=== PATIENT | male | born 1960 | race American Indian/Alaskan Native ===

== ENCOUNTER 2018-01-01 11:06 | Outpatient (CLI) | payer BC ==
[2018-01-01 11:56] LABS: Blood Urea Nitrogen 13 mg/dL (9-20)
--- NOTE | 2018-01-01 17:13 | Cat Scan Report ---
FINAL REPORT EXAM: CT ABDOMEN PELVIS W CON HISTORY: ABDOMINAL PAIN COMPARISON: None. TECHNIQUE: Multiple contiguous axial images were obtained from the lung bases to the pubic symphysis after administration of IV contrast. Reformatted sagittal and coronal images were available for review. FINDINGS: Lung bases: Normal. Visualized heart and mediastinum: Normal. Liver: Normal. Spleen: Normal. Pancreas: Normal. Gallbladder and Biliary Tree: No calcified gallstones. No biliary ductal dilatation. Adrenal glands: Normal. Kidneys: Symmetric enhancement to both kidneys. No hydronephrosis. Bladder: Normal. Pelvic organs: Normal prostate gland and seminal vesicles. Bowel: No evidence of obstruction. Oral contrast advances to the transverse colon. Large amount of stool within the colon. The appendix is mildly dilated, measuring up to 9 millimeters in diameter. There is a small appendicoliths within the tip of the appendix. There is minimal stranding around the tip of the appendix. Peritoneum: No significant mesenteric adenopathy. No free air or free fluid. Vasculature: Abdominal aorta is normal in caliber without evidence of aneurysm. Normal appearance of the portal venous system and the inferior vena cava. Bones and soft tissues: No suspicious osseous lesions. No acute fracture or dislocation. Degenerative changes of the spine.Soft tissues are normal. IMPRESSION: Findings are concerning for early appendicitis. The appendix measures up to 9 millimeters and demonstrates an appendicolith. There is a minimal amount of stranding around the tip of the appendix. No evidence of perforation or abscess formation.
== END 2018-01-01 11:07 | disposition home or self-care (01) ==
LOC: CT 11:06
PROVIDERS: ATTEND Internal Medicine Gastroenterology
DX: K38.1 Appendicular concretions (principal); R19.4 Change in bowel habit; M47.899 Other spondylosis, site unspecified; E11.9 Type 2 diabetes mellitus without complications; I10 Essential (primary) hypertension
CPT/HCPCS: 36415; 74177; 82565; 84520; Q9967

== ENCOUNTER 2021-06-19 07:36 | Emergency (ER) | payer BC ==
[2021-06-19 07:51] VITALS: BP 143/72
--- NOTE | 2021-06-19 07:54 | Emergency Department Report ---
ED Abdominal Pain HPI - General Chief Complaint: Abdominal Pain Stated Complaint: WANTS APPENDIX CHECKED Time Seen by Provider: 06/19/21 07:49 Source: patient Mode of arrival: Ambulatory Limitations: No Limitations - History of Present Illness Initial Comments: The patient was evaluated in the emergency department for symptoms described in the history of present illness. He/she was evaluated in the context of the global COVID-19 pandemic, which necessitated consideration that the patient might be at risk for infection with the virus that causes COVID-19. Institutional protocols and algorithms that pertain to the evaluation of patients at risk for COVID-19 are in a state of rapid change based on information released by regulatory bodies including the CDC and federal and state organizations. These policies and algorithms were followed during the patient's care in the emergency department. Please note that these policies, procedures and recommendations changed on a rapid basis. 60-year-old -[place] male presents to the emergency room complaining of right lower quadrant pain since . Patient states that it improved and came back worse. He denies any nausea vomiting no fever no chills no diarrhea. Patient denies any dysuria no penile discharge no testicular pain or testicular swelling. Patient states the pain is a 4 out of 10 worse with walking and standing better when he sitting. He denies any history of pain from that side before. He has had no surgeries. Has a history of diabetes hypercholesterolemia and hypertension. Patient reports he is currently on verapamil pravastatin losartan and Metformin. Patient denies any alcohol use no illicit drug use. He is currently vaccinated for Covid denies any suicidal ideation or homicidal ideation. MD Complaint: abdominal pain Onset/Timin -: week(s) Location: [facility] Radiation: none Migration to: no migration Severity scale (0 -10): 4 Quality: aching Consistency: intermittent Improves With: rest (Sitting) Worsens With: movement Associated Symptoms: denies other symptoms - Related Data Home Medications Medication Instructions Recorded Confirmed Last Taken Losartan [Cozaar] 100 mg PO QDAY 01/02/18 01/02/18 1 Day Ago ~06/18/21 Pravastatin Sodium [Pravachol] 40 mg PO 01/02/18 1 Day Ago ~06/18/21 Verapamil ER [Calan SR] 180 mg PO 01/02/18 1 Day Ago ~06/18/21 metFORMIN [Glucophage] 500 mg PO BID 06/19/21 06/19/21 Unknown Previous Rx's Medication Instructions Recorded Last Taken Type Pantoprazole [Protonix] 40 mg PO QDAY #14 tablet 01/03/18 1 Day Ago Rx ~06/18/21 levoFLOXacin [Levaquin] 750 mg PO QDAY #5 tablet 01/03/18 1 Day Ago Rx ~06/18/21 Allergies Allergy/AdvReac Type Severity Reaction Status Date / Time No Known Allergies Allergy Unverified 01/01/18 11:06 ED Review of Systems ROS: Stated complaint: WANTS APPENDIX CHECKED Other details as noted in HPI Comment: All other systems reviewed and negative ED Past Medical Hx - Past Medical History Hx Hypertension: Yes Hx Heart Attack/AMI: No Hx Congestive Heart Failure: No Hx Diabetes: Yes Hx Deep Vein Thrombosis: No Hx Pulmonary Embolism: No Hx Liver Disease: No Hx Renal Disease: No Hx Sickle Cell Disease: No Hx Arthritis: No Hx Kidney Stones: No Hx Asthma: No Hx COPD: No Hx Tuberculosis: No Hx Dementia: No Hx HIV: No - Surgical History Hx Coronary Stent: No Hx Internal Defibrillator: No - Social History Smoking Status: Never Smoker - Medications Home Medications: Home Medications Medication Instructions Recorded Confirmed Last Taken Type Losartan [Cozaar] 100 mg PO QDAY 01/02/18 01/02/18 1 Day Ago History ~06/18/21 Pravastatin Sodium [Pravachol] 40 mg PO 01/02/18 1 Day Ago History ~06/18/21 Verapamil ER [Calan SR] 180 mg PO 01/02/18 1 Day Ago History ~06/18/21 Pantoprazole [Protonix] 40 mg PO QDAY #14 tablet 01/03/18 1 Day Ago Rx ~06/18/21 levoFLOXacin [Levaquin] 750 mg PO QDAY #5 tablet 01/03/18 1 Day Ago Rx ~06/18/21 metFORMIN [Glucophage] 500 mg PO BID 06/19/21 06/19/21 Unknown History ED Physical Exam - General Limitations: No Limitations General appearance: alert, in no apparent distress - Head Head exam: Present: atraumatic, normocephalic - Eye Eye exam: Present: normal appearance - ENT ENT exam: Present: mucous membranes moist - Neck Neck exam: Present: normal inspection - Respiratory Respiratory exam: Present: normal lung sounds bilaterally. Absent: respiratory distress - Cardiovascular Cardiovascular Exam: Present: regular rate, normal rhythm. Absent: systolic murmur, diastolic murmur, rubs, gallop - GI/Abdominal GI/Abdominal exam: Present: soft, tenderness (Right lower quadrant), normal bowel sounds. Absent: guarding - Expanded GI/Abdominal Exam Expanded GI/Abdominal exam: Present: psoas sign - Rectal Rectal exam: Present: deferred - Extremities Exam Extremities exam: Present: normal inspection - Back Exam Back exam: Present: normal inspection - Neurological Exam Neurological exam: Present: alert, oriented X3, normal gait - Psychiatric Psychiatric exam: Present: normal affect, normal mood - Skin Skin exam: Present: warm, dry, intact, normal color. Absent: rash ED Course Vital Signs 06/19/21 07:49 Temperature 97.7 F Pulse Rate 68 Respiratory 18 Rate Blood Pressure 143/72 O2 Sat by Pulse 99 Oximetry - Consultations Consultation #1: 06/19/21 10:25 Consulted , General surgeon she was able to review over patient CT scans and labs and feels that this is not an acute appendicitis. ED Medical Decision Making - Lab Data Result diagrams: 06/19/21 08:26 06/19/21 08:26 - Radiology Data Radiology results: report reviewed My Comment(s) Study Comments [facility] [address] [place] [address] Cat Scan Report Signed Patient: HUBER LOPEZ MR#: [id number] : 1960 Acct:[id number] Age/Sex: 60 / M ADM Date: 06/19/21 Loc: ED Attending Dr: Ordering Physician: NETO GRIFFITHS Date of Service: 06/19/21 Procedure(s): CT abdomen pelvis w con Accession Number(s): [id number] cc: NETO GRIFFITHS CT abdomen pelvis w con INDICATION / CLINICAL INFORMATION: rlq 100 ML OMNI 300 . TECHNIQUE: Axial CT imaging of abdomen and pelvis was obtained with IV contrast. Coronal and sagittal reformatted imaging obtained and reviewed. All CT scans at this location are performed using CT dose reduction for ALARA by means of automated exposure control. COMPARISON: Prior CT abdomen/pelvis 01/01/2018 FINDINGS: CT abdomen with contrast demonstrates normal appearance of the liver, spleen, pancreas, kidneys, and adrenal glands. Gallbladder is present without obvious abnormality. No biliary dilatation noted. CT pelvis with contrast does not demonstrate mass, free fluid, or focal inflammatory change. Prostate gland is mildly enlarged. The appendix is visualized and is slightly enlarged measuring 9 mm in diameter but otherwise unremarkable. There is no periappendiceal inflammatory change. The appendix is unchanged in size and appearance compared with the prior CT of 2018. Therefore I do not see signs to suggest the presence of acute appendicitis. Moderate amount retained stool is noted throughout the colon. The remainder of the GI tract is unremarkable. Visualized lung bases are clear. No acute significant osseous abnormality is present. IMPRESSION: 1. No definite acute finding within the abdomen or pelvis. 2. Please note the appendix is mildly prominent for size with diameter of 9 mm, but there is no periappendiceal inflammatory change, and the size/appearance is unchanged compared with prior CT of 01/01/2018. 3. Mild enlargement of the prostate gland. Signer Name: Laura Zavala MD Signed: 06/19/2021 9:59 AM Workstation Name: [id number] Transcribed By: Dictated By: Laura Zavala MD Electronically Authenticated By: Laura Zavala MD Signed Date/Time: 06/19/21958 DD/ 2 TD/TT: - Medical Decision Making 60-year-old -[place] male presents to the emergency room complaining of right lower quadrant pain since . Patient states that it improved and came back worse. He denies any nausea vomiting no fever no chills no diarrhea. Patient denies any dysuria no penile discharge no testicular pain or testicular swelling. Patient states the pain is a 4 out of 10 worse with walking and standing better when he sitting. He denies any history of pain from that side before. He has had no surgeries. Has a history of diabetes hypercholestero lemia and hypertension. Patient reports he is currently on verapamil pravastatin losartan and Metformin. Patient denies any alcohol use no illicit drug use. He is currently vaccinated for Covid denies any suicidal ideation or homicidal ideation. CBC CMP lipase urinalysis, CT abdomen pelvis with contrast. INT ordered CT scan came back with no acute changes. They reported that the appendix was prominently enlarged but no change from the last CT in 2018. Spoke to Dr. Alonso, General surgeon she does not feel that is an acute appendicitis. Patient will be discharged home to follow-up with his primary care provider. Critical care attestation.: If time is entered above; I have spent that time in minutes in the direct care of this critically ill patient, excluding procedure time. ED Disposition Clinical Impression: Abdominal pain, acute, right lower quadrant Disposition: HOME / SELF CARE / HOMELESS Is pt being admited?: No Does the pt Need Aspirin: No Condition: Stable Instructions: Abdominal Pain, Adult, [place]-up-Rids Additional Instructions: CT scans negative for any acute appendicitis. He is to follow-up with your primary care provider. It was noted that your prostate is enlarged and I recommend following up with your urologist. Referrals: PRIMARY CARE, [Primary Care Provider] - 3-5 Days Forms: Work/School Release Form(ED)
[2021-06-19 08:49] LABS: Basophils % (Auto) 0.9 % (0.0-1.8); Eosinophils # (Auto) 0.2 K/mm3 (0.0-0.4); Eosinophils % (Auto) 3.3 % (0.0-4.3); Hematocrit 41.5 % (35.5-45.6); Lymphocytes # (Auto) 2.2 K/mm3 (1.2-5.4); Mean Corpuscular HGB Conc 34 % (32-34); Mean Corpuscular Volume 85 fl (84-94); Monocytes # (Auto) 0.6 K/mm3 (0.0-0.8); Monocytes % (Auto) 11.7 % (0.0-7.3); Platelet Count 221 K/mm3 (140-440); Red Blood Count 4.89 M/mm3 (3.65-5.03); Red Cell Distribution Width 13.3 % (13.2-15.2)
[2021-06-19 09:11] LABS: Alanine Aminotransferase 22 units/L (7-56); Albumin 4.1 g/dL (3.9-5); BUN/Creatinine Ratio 15; Blood Urea Nitrogen 17 mg/dL (9-20); Calcium 9.2 mg/dL (8.4-10.2); Hemolysis Index 13
[2021-06-19 09:31] LABS: Bilirubin,Urine NEG (Negative); Blood,Urine NEG (Negative); Color,Urine Yellow (Yellow); Mucus,Urine FEW /HPF; Protein,Urine <15 mg/dL mg/dL (Negative)
[2021-06-19 09:45] LABS: RBC,Urine < 1.0 /HPF (0.0-6.0)
--- NOTE | 2021-06-19 10:03 | Cat Scan Report ---
CT abdomen pelvis w con INDICATION / CLINICAL INFORMATION: rlq 100 ML OMNI 300 . TECHNIQUE: Axial CT imaging of abdomen and pelvis was obtained with IV contrast. Coronal and sagittal reformatte d imaging obtained and reviewed. All CT scans at this location are performed using CT dose reduction for ALARA by means of automated exposure control. COMPARISON: Prior CT abdomen/pelvis 01/01/2018 FINDINGS: CT abdomen with contrast demonstrates normal appearance of the liver, spleen, pancreas, kidneys, and adrenal glands. Gallbladder is present without obvious abnormality. No biliary dilatation noted. CT pelvis with contrast does not demonstrate mass, free fluid, or focal inflammatory change. Prostate gland is mildly enlarged. The appendix is visualized and is slightly enlarged measuring 9 mm in diam eter but otherwise unremarkable. There is no periappendiceal inflammatory change. The appendix is unc hanged in size and appearance compared with the prior CT of 2018. Therefore I do not see signs to sug gest the presence of acute appendicitis. Moderate amount retained stool is noted throughout the colon . The remainder of the GI tract is unremarkable. Visualized lung bases are clear. No acute significant osseous abnormality is present. IMPRESSION: 1. No definite acute finding within the abdomen or pelvis. 2. Please note the appendix is mildly prominent for size with diameter of 9 mm, but there is no peria ppendiceal inflammatory change, and the size/appearance is unchanged compared with prior CT of 018. 3. Mild enlargement of the prostate gland. Signer Name: Laura Zavala MD Signed: 06/19/2021 9:59 AM Workstation Name: [id number]
== END 2021-06-19 10:41 | disposition home or self-care (01) ==
LOC: ED 07:36
DX: R10.31 Right lower quadrant pain (principal); I10 Essential (primary) hypertension; E11.9 Type 2 diabetes mellitus without complications; Z79.899 Other long term (current) drug therapy
CPT/HCPCS: 36415; 74177; 80053; 81001; 83690; 85025; 99284; Q9967